=== PATIENT | female | born 1965 | race Caucasian/White ===

== ENCOUNTER 2017-09-27 16:06 | Emergency (ER) | payer MEDICAID, OTHER ==
--- NOTE | 2017-09-27 17:25 | EDPHY ---
H & P Stated Complaint: Wants detox; last alcohol last pm Time Seen by Provider: 09/27/17 17:24 - Personal History LMP (Females 10-55): Post Menopausal Current Tetanus Diphtheria and Acellular Pertussis (TDAP): Yes - Medical/Surgical History Hx Alcoholism: Yes Other PMH: alcoholism - Social History Smoking Status: Current some day smoker Constitutional: Initial Vital Signs Temperature (C) 36.7 C 09/27/17 16:15 Heart Rate 117 H 09/27/17 16:15 Respiratory Rate 18 09/27/17 16:15 Blood Pressure 134/101 H 09/27/17 16:15 O2 Sat (%) 97 09/27/17 16:15 O2 Delivery Mode Room Air Allergies/Adverse Reactions: Penicillins Allergy (Unknown, Verified 09/27/17 16:17) Home Medications: Medication Instructions Recorded cloNIDine HCL [Clonidine HCl] 0.1 mg PO 08/19/12 Albuterol Sulfate [Ventolin Hfa] 8 gm IH 09/27/17 LORazepam [Ativan (*)] 1 mg PO 09/27/17 Ondansetron Odt [Zofran Odt 4 mg 09/27/17 (*)] Seboxone 09/27/17 Zolpidem Tartrate [Ambien 5MG (*)] 5 mg PO HS 09/27/17 traZODone [traZODONE 50MG (*)] 50 mg PO 09/27/17 Medical Decision Making ED Course/Re-evaluation: CHIEF COMPLAINT: Alcohol withdrawal and Suboxone withdrawal HISTORY OF PRESENT ILLNESS: This patient is on a low-dose Suboxone. This patient also has a problem with alcohol abuse. She tried to stop her alcohol cold turkey as of just last night. She is vomiting so much she can take her Suboxone. She has a little bit shaky and feels quite nauseated. She would like to get hydrated and [facility] which she [facility] already been in contact with. REVIEW OF SYSTEMS: A 10 point review of systems was performed and is negative with the exception of the elements mentioned in the history of present illness. PHYSICAL EXAM: HR, BP, O2 Sat, RR. Temp noted General Appearance: Alert, well hydrated, appropriate, and non-toxic appearing. A bit shaky Head: Atraumatic without scalp tenderness or obvious injury Eyes: Pupils equal, round, reactive to light and accommodation, EOMI, no trauma , no injection. Ears: Clear bilaterally, no perforation, normal landmarks Nose: Atraumatic, no rhinorrhea, clear. Throat: There is no erythema or exudates, no lesions, normal tonsils, mucus membranes moist. Neck: Supple, 2+ carotid upstroke, nontender, no lymphadenopathy. Respiratory: No retractions, no distress, no wheezes, and no accessory muscle use. Lungs are clear to auscultation bilaterally. Cardiovascular: Regular rate and rhythm, no murmurs, rubs, or gallops. Bilateral carotid, radial, dorsalis pedis, and posterior tibial pulses intact. Good capillary refill all extremities. Gastrointestinal: Abdomen is soft, nontender, non-distended, no masses, no rebound, no guarding, no peritoneal signs. Musculoskeletal: Normal active ROM of all extremities, atraumatic. Neurological: Alert, appropriate, and interactive. The patient has normal DTRs and non-focal cranial nerves, motor, sensory, and cerebellar exam. Skin: No rashes, good turgor, no nodules on palpation. Past medical history: Alcohol abuse, narcotic abuse Past surgical history: Noncontributory Family history: Noncontributory Social history: Single, unemployed, abuses alcohol, on Suboxone, denies cigarette use DIFFERENTIAL DIAGNOSIS: The differential diagnosis for the patient's nausea and vomiting included but was not limited to gastroenteritis, gastritis, appendicitis, withdrawal, and medication side effect. MEDICAL DECISION MAKING: This patient is having both alcohol and mild Suboxone withdrawal. I will give her intravenous fluids, Zofran, Ativan to decrease her withdrawal symptoms. Hopefully then she can take her oral Suboxone. She has been accepted at the [facility] when she is able to hold down fluids. Departure - Departure Disposition: Home, Routine, Self-Care Clinical Impression: Polysubstance abuse Alcohol dependence Qualifiers: Substance use status: in withdrawal Complication of substance-induced condition : uncomplicated Qualified Code(s): F10.230 - Alcohol dependence with withdrawal , uncomplicated Condition: Good Instructions: Abuse of Alcohol (ED) Referrals: KODI CANELA [Primary Care Provider] - As per Instructions
[2017-09-27] MEDS ORDERED: LORazepam 2 MG/ML INJ IVP ONE (17:30)
[2017-09-27] MEDS ORDERED: ONDANSETRON 4 MG/2 ML VIAL IVP ONE (17:30)
[2017-09-27] MEDS ORDERED: CHLORDIAZEPOXIDE 25MG PREPK#6 BTL TAKEHOME ONE (18:12)
[2017-09-27 18:23] VITALS: TEMP 98.4
[2017-09-27 18:41] VITALS: BP 122/76; PULSE 76; RESP 16; O2SAT 95
== END 2017-09-27 18:40 | disposition home or self-care (01) ==
LOC: EEVIPCON 16:06
DX: F19.10 Other psychoactive substance abuse, uncomplicated (principal); F10.230 Alcohol dependence with withdrawal, uncomplicated; F17.200 Nicotine dependence, unspecified, uncomplicated
CPT/HCPCS: 96374; J2060; J2405